=== PATIENT | male | born 1955 | race African-American/Black ===

== ENCOUNTER 2017-08-16 13:31 | Emergency (ER) | payer MEDICARE ==
[2017-08-16] MEDS ORDERED: Lisinopril 10 MG TAB ONE (14:18)
== END 2017-08-16 15:10 | disposition home or self-care (01) ==
LOC: ERS 13:31
DX: I16.0 Hypertensive urgency (principal); F17.210 Nicotine dependence, cigarettes, uncomplicated; Z79.899 Other long term (current) drug therapy; Z71.6 Tobacco abuse counseling
CPT/HCPCS: 99406